=== PATIENT | female | born 1950 | race African-American/Black ===

== ENCOUNTER 2023-06-22 12:32 | Emergency (ER) | payer MEDICARE ==
[~2023-06-22] VITALS: Ht 165.1 cm; Wt 90.6 kg
[2023-06-22 13:29] VITALS: BP 161/70
[2023-06-22 14:01] VITALS: BP 155/78
[2023-06-22] MEDS ORDERED: MEDROL DOSEPAK4 MG PO (14:16)
[2023-06-22] MEDS ORDERED: MELOXICAM7.5 MG PO (14:16)
[2023-06-22 14:18] VITALS: BP 161/70
== END 2023-06-22 14:30 | disposition home or self-care (01) ==
LOC: ED 12:32
DX: G89.29 Other chronic pain (principal); M25.561 Pain in right knee; I10 Essential (primary) hypertension; E03.9 Hypothyroidism, unspecified